=== PATIENT | female | born 1985 | race Caucasian/White ===

== ENCOUNTER → 2016-10-22 | Outpatient (CLI) | payer OTHER ==
--- NOTE | 2016-10-22 11:39 | DI ---
Indication: ITS.REASON: Z34.90 Encounter for supervision of normal , unspecified PROCEDURE: US OB COMPLETE >/= 14WKS: Encounter: Initial Age by provided LMP is 18 weeks and 1 days correlating to an ZHEN of March 24, 2017. Comparison: September 03, 2016 PROCEDURE: US OB COMPLETE >/= 14WKS: Technique: Grayscale and color Doppler transabdominal sonographic imaging was performed. Findings: There is a single living intrauterine gestation in cephalic lie. Placenta is posterior without previa. Quantity of amniotic fluid is normal. The cervix is normal length and closed. Amniotic fluid index is normal at 10.3 cm. Largest vertical pocket in the left upper quadrant is 3.3 cm. Survey of anatomy, including lateral ventricles, cavum septum, posterior fossa, spine, four chamber view of the heart, stomach, kidneys, bladder, and three vessel orthotopic cord insertion are normal. In addition, all long bones in both upper and lower extremities and both hands and feet are present. Coronal view of the nose and lips and sagittal facial profile are unremarkable. heart beats regularly at 143 beats per minute. biometry: Biparietal diameter: 3.92 cm 18 weeks and 0 days (41 percentile). Head circumference: 14.92 cm 18 weeks and 1 days (35 percentile). Abdominal circumference: 12.44 cm 18 weeks and 1 days (44 percentile). Femur Length: 2.66 cm 18 weeks and 1 days (43 percentile). biometrics are internally concordant and consistent with an estimated gestational age of 18 weeks and 1 days. Estimated weight is 223 grams (40 percentile by LMP and 40 percentile by AUA method). Impression: 1. Single living intrauterine gestation with age by provided LMP of 18 weeks and 1 days. This correlates to an ZHEN of March 24, 2017. Estimated dates by ultrasound are identical to the LMP dating. 2. Normal survey of anatomy. .
== END ==
LOC: IMA 10:23
PROVIDERS: ATTEND Family Medicine
DX: Z34.92 Encounter for supervision of normal pregnancy, unspecified, second trimester (principal); Z3A.18 18 weeks gestation of pregnancy; Z36 Encounter for antenatal screening of mother

== ENCOUNTER 2017-02-24 07:14 | Inpatient (IN) ==
[2017-02-24] MEDS ORDERED: MAG-AL + SIM ORAL LIQUID 30ml PO PRN (08:17)
[2017-02-24] MEDS ORDERED: METHYLERGONOVINE 0.2 MG/ML INJECTION IM PRN (08:17)
[2017-02-24] MEDS ORDERED: CALCIUM CARBONATE Chewable 500mg TABLET PO PRN (08:17)
[2017-02-24] MEDS ORDERED: CARBOPROST 250 MCG/ML INJECTION IM PRN (08:17)
[2017-02-24] MEDS ORDERED: ACETAMINOPHEN 500 MG TABLET PO PRN (08:17)
[2017-02-24] MEDS ORDERED: LIDOCAINE 1% (10mg/ml) 2mL INJ PF SDV ID PRN (08:17)
[2017-02-24] MEDS ORDERED: LR 1,000 ML IV SCH (08:30)
[2017-02-24] MEDS ORDERED: AMPICILLIN 2 GM in NS 100 ML IV ONE (08:45)
[2017-02-24] MEDS ORDERED: D5LR 1,000 ML IV SCH (08:52)
[2017-02-24] MEDS ORDERED: OXYTOCIN DRIP 30 UNIT/500 ML ML IV PRN (09:45)
[2017-02-24 10:02] VITALS: BMI 36.3
[2017-02-24 10:14] VITALS: RESP 16; O2SAT 98
--- NOTE | 2017-02-24 11:55 | Anesthesia Preoperative Report ---
Anesthesia Epidural/Spinal Rec - Date and Time Date: 02/24/17 Procedure: Labor Epidural Plan: Epidural - Vital Signs Vital Signs: Temperature 98.3 F 02/24/17 10:09 Pulse Rate 100 02/24/17 10:09 Respiratory Rate 16 02/24/17 10:09 Blood Pressure 119/80 02/24/17 10:09 Pulse Oximetry 98 02/24/17 10:09 Oxygen Delivery Method Room Air /Para: P:2 - Medictaions & Allergies Inpatient Medications: Current Medications Acetaminophen (Tylenol) 500 - 1,000 mg PO Q4H PRN PRN Reason: Pain Al Hydroxide/Mg Hydroxide (Maalox Plus) 30 ml PO Q3H PRN PRN Reason: Indigestion Calcium Carbonate (Tums) 500 - 1,000 mg PO Q2H PRN PRN Reason: Indigestion Carboprost Tromethamine (Hemabate) 250 mcg IM O PRN PRN Reason: .Downtime Lactated Ringer's (Lactated Ringers) 1,000 mls @ 999 mls/hr IV .Q1H1M [facility] Last Admin: 02/24/17 08:26 Dose: 999 mls/hr Ampicillin Sodium 1 gm/ Sodium (Chloride) 100 mls @ 200 mls/hr IV Q4H [facility] Dextrose/Lactated Ringer's (Dextrose 5%-Lactated Ringers) 1,000 mls @ 125 mls/ hr IV .Q8H [facility] Last Admin: 02/24/17 09:05 Dose: 125 mls/hr Lidocaine HCl (Xylocaine-Mpf 1% Vial) 0.2 mg ID O PRN PRN Reason: IV Start Methylergonovine Maleate (Methergine) 0.2 mg IM O PRN Misoprostol (Cytotec) 800 mcg ME ONCE PRN Allergies/Adverse Reactions: Allergies Allergy/AdvReac Type Severity Reaction Status Date / Time NKDA Allergy Unknown Uncoded 02/24/17 09:38 - Home Medications Home Medications: Home Medications Medication Instructions Recorded Confirmed Type Aspirin 1 tab PO DAILY 02/24/17 02/24/17 History FLUoxetine [Prozac] 20 mg PO DAILY 02/24/17 02/24/17 History - Medical History Respiratory: DENIES: Asthma, Bronchitis, Chronic Obstructive Pulmonary Disease (COPD), Dyspnea, Orthopnea, Pulmonary Embolism, Pneumonia, Upper Respiratory Infection, Pulmonary Edema, Sleep Apnea, Tuberculosis, Other Cardiovascular: Reports: Hypertension (borderline PIH) Gastrointestional: Reports: Gastroesophageal Reflux Disease (moderate control with meds PRN) Neuro/Musculoskeletal: Reports: Depression Renal/Endocrine: Reports: Diabetes Mellitus Type 2 (Borderline gestational. no meds.) Other History: Reports: Anesthesia Reactions, Now, Malignant Hyperthermia (pt mother's cousins child.) - Surgical History Anesthesia Reactions: None (Pt has never had GA. no problems with epidurals in past.) Hx Family Anesthesia Reaction: Yes (pt mother's cousin's child has hx of MH) History of Motion Sickness: No - Social History Smoking Status: Never smoker Substance Use Type: does not use Hx Chewing Tobacco Use: No - Pertinent Findings Lab Data: CBC and BMP 02/24/17 08:45 EKG Rhythm: Normal Sinus Rhythm - Physical Exam Respiratory Exam: lungs clear, bilateral breath sounds equal Cardiovascular Exam: regular rate and rhythm, no murmur - Airway Assessment Mallampati Score: I TMD: 3 Fingerbreadths Neck Extension: good Overall Assessment: may be difficult intubation - ASA ASA Score: 2 - Discussion Discussion: Discussed risks/options/alternatives of anesthesia and questions answered. Patient consents. Nursing pain assessment noted. Anesthesia Discussion: spouse Attestation Statement: Prior to the delivery of any anesthetic medication, I examined the patient, developed the plan, obtained the patient's consent and discussed the risk and benefits of the procedure with the patient/guardian.
[2017-02-24] MEDS ORDERED: AMPICILLIN 1 GM in NS 100 ML IV SCH (12:45)
[2017-02-24 15:14] VITALS: BP 137/62; PULSE 64; TEMP 98.4
--- NOTE | 2017-02-24 17:22 | Discharge Instructions ---
Discharge Plan - Med Rec/Dispo Referrals/Follow Up: Nelly Aranda MD [Family Provider] - (Follow up with Rosi on scheduled appt. 02/25/17. ) Jennifer Instructions: HOLA Prescriptions: No Action Aspirin 1 tab PO DAILY FLUoxetine [Prozac] 20 mg PO DAILY
--- NOTE | 2017-02-25 08:45 | Progress Note ---
DATE 02/24/2017 She is a patient of Dr. Aranda. Ms. Estrella is a 31-year-old G5, P2 who sees Dr. Aranda for her regular care. Her due date is 03/24/2017, putting her at 36 weeks estimated gestational age. She was awakened this morning with sharp lower quadrant pain that was intermittent. She then coughed and had a gush of fluid. She presented to [facility]. Here, heart tones were reactive and reassuring. The patient was francia with regularity. AmniSure was obtained. The nurse read it initially as negative but because she could make out where the line was, she showed it to the lab personnel. They recommended that she call it faint positive. The patient was admitted. After a few hours, she was not francia any longer so we started Pitocin. She contracted with this but did not progress any farther. Her cervix remained closed, thick and high through the day. As she had no further leakage, we began to question the original diagnosis of spontaneous rupture of membranes. For this reason I discussed this situation with the patient and with her . I performed a bedside ultrasound and could see two large pockets of amniotic fluid. I performed a sterile speculum exam. There was no pooling. It had been about two hours since she had a cervical check at this point. I performed ferning test with a swab of the vaginal discharge and there was no ferning on that after drying. After discussion with the patient, I elected to send her home as I really don't think she was ruptured and was only 36 weeks. We discussed the situation at length, questions were elicited and answered. I have encouraged her to call if she has any further leaking or feels that labor is progressing. She has an appointment tomorrow with Dr. Aranda and I have encouraged her to keep this but to return to [facility] sooner if there are any further concerns. IDA
== END 2017-02-24 16:24 | disposition home or self-care (01) | DRG 778 ==
LOC: OBOBS 07:14 → MC 07:17 → OBOBS 07:19 → MC 08:21
PROVIDERS: ADMIT Family Medicine; ATTEND Family Medicine

== ENCOUNTER 2017-03-03 01:27 | Inpatient (IN) ==
[2017-03-03] MEDS ORDERED: CARBOPROST 250 MCG/ML INJECTION IM PRN (01:54)
[2017-03-03] MEDS ORDERED: LIDOCAINE 1% (10mg/ml) 2mL INJ PF SDV ID PRN (01:54)
[2017-03-03] MEDS ORDERED: MAG-AL + SIM ORAL LIQUID 30ml PO PRN ×2 (01:54→17:15)
[2017-03-03] MEDS ORDERED: ACETAMINOPHEN 500 MG TABLET PO PRN (01:54)
[2017-03-03] MEDS ORDERED: CALCIUM CARBONATE Chewable 500mg TABLET PO PRN ×2 (01:54→17:15)
[2017-03-03] MEDS ORDERED: METHYLERGONOVINE 0.2 MG/ML INJECTION IM PRN (01:54)
[2017-03-03] MEDS: LR 1,000 ML IV SCH ×3 (02:20→14:55)
[2017-03-03] MEDS ORDERED: AMPICILLIN 2 GM in NS 100 ML IV ONE (02:30)
[2017-03-03 03:12] VITALS: BMI 36.3
[2017-03-03] MEDS: AMPICILLIN 1 GM in NS 100 ML IV SCH ×2 (06:42→12:05)
--- NOTE | 2017-03-03 08:14 | Anesthesia Preoperative Report ---
Anesthesia Epidural/Spinal Rec - Date and Time Date: 03/03/17 Preoperative Diagnosis: induction Procedure: Labor Epidural Plan: Epidural - Vital Signs Vital Signs: Temperature 97.9 F 03/03/17 01:40 Pulse Rate 91 03/03/17 01:40 Respiratory Rate 18 03/03/17 01:40 Blood Pressure 142/88 H 03/03/17 01:40 Oxygen Delivery Method Room Air /Para: P:2 - Medictaions & Allergies Inpatient Medications: Current Medications Acetaminophen (Tylenol) 500 - 1,000 mg PO Q4H PRN PRN Reason: Pain Al Hydroxide/Mg Hydroxide (Maalox Plus) 30 ml PO Q3H PRN PRN Reason: Indigestion Calcium Carbonate (Tums) 500 - 1,000 mg PO Q2H PRN PRN Reason: Indigestion Carboprost Tromethamine (Hemabate) 250 mcg IM O PRN PRN Reason: .Downtime Ampicillin Sodium 1 gm/ Sodium (Chloride) 100 mls @ 200 mls/hr IV Q4H [facility] Last Admin: 03/03/17 06:42 Dose: 200 mls/hr Lactated Ringer's (Lactated Ringers) 1,000 mls @ 125 mls/hr IV .Q8H [facility] Last Admin: 03/03/17 02:20 Dose: 125 mls/hr Lidocaine HCl (Xylocaine-Mpf 1% Vial) 0.2 mg ID O PRN PRN Reason: IV Start Methylergonovine Maleate (Methergine) 0.2 mg IM O PRN Misoprostol (Cytotec) 800 mcg IN ONCE PRN Allergies/Adverse Reactions: Allergies Allergy/AdvReac Type Severity Reaction Status Date / Time NKDA Allergy Unknown Uncoded 03/03/17 03:13 - Home Medications Home Medications: Home Medications Medication Instructions Recorded Confirmed Type Aspirin 1 tab PO DAILY 02/24/17 03/03/17 History FLUoxetine [Prozac] 20 mg PO DAILY 02/24/17 03/03/17 History - Medical History Neuro/Musculoskeletal: Reports: Depression - Surgical History Anesthesia Reactions: None Hx Family Anesthesia Reaction: No History of Motion Sickness: No - Social History Second Hand Exposure: No Substance Use Type: does not use Alcohol Intake Frequency: does not drink Hx Chewing Tobacco Use: No - Pertinent Findings Lab Data: CBC and BMP 03/03/17 02:25 EKG Rhythm: Normal Sinus Rhythm - Physical Exam Respiratory Exam: lungs clear Cardiovascular Exam: regular rate and rhythm, no murmur - Airway Assessment Mallampati Score: I TMD: 3 Fingerbreadths Neck Extension: good Overall Assessment: no airway concerns - ASA ASA Score: 2 - Discussion Discussion: Discussed risks/options/alternatives of anesthesia and questions answered. Patient consents. Nursing pain assessment noted. Anesthesia Discussion: spouse Attestation Statement: Prior to the delivery of any anesthetic medication, I examined the patient, developed the plan, obtained the patient's consent and discussed the risk and benefits of the procedure with the patient/guardian.
[2017-03-03] MEDS ORDERED: D5LR 1,000 ML IV PRN (08:50)
[2017-03-03] MEDS ORDERED: OXYTOCIN DRIP 30 UNIT/500 ML ML IV PRN (08:50)
--- NOTE | 2017-03-03 09:16 | OB/GYN Progress Note ---
- Pain Control Pain control: Tolerating well - Pelvic Exam Dilation (cm): 3 Effacement (%): 60 station: -3 Amniotic membrane status: Ruptured Comments: PROM at 0130 this am. Pt presented at [facility] and progressed to 3 cm and has not changed since then will start IOL - Contractions Monitor mode: External Contraction pattern: Irregular Contraction intensity: Mild - Status status: Category l - Assessment and Plan Assessment: induction ongoing (IOL for PROM. GBS unknown and pt was started on ABX. Discussed indication for IOL and R/B/A/ including failure, C/S carmita PPH. )
--- NOTE | 2017-03-03 13:08 | OB/GYN Progress Note ---
- Pain Control Pain control: Epidural - Pelvic Exam Dilation (cm): 3 Effacement (%): 60 station: -3 Amniotic membrane status: Ruptured Comments: For bag palpated, Ruptured Moderate amount clear fluid. - Contractions Monitor mode: External Contraction pattern: Regular (AROM of forebag tolerated by pt and fetus) Contraction intensity: Moderate - Status status: Category l - Assessment and Plan Assessment: induction ongoing
[2017-03-03] MEDS ORDERED: NALOXONE 0.4 MG/ML INJECTION IVP PRN (15:20)
[2017-03-03] MEDS ORDERED: DiphenhydrAMINE 50 MG/ML INJECTION IVP PRN (15:20)
[2017-03-03] MEDS ORDERED: ONDANSETRON 4 MG/2 ML INJECTION IVP PRN (15:20)
[2017-03-03] MEDS ORDERED: ROPIVACAINE 1% 10MG/ML INJ 200 MG, SUFentanil 50 MCG in NS 100 ML EPI PRN (15:20)
--- NOTE | 2017-03-03 17:13 | OB/GYN Procedure Note ---
Delivery date: 03/03/17 Events: Labor Induction Induction method: per pitocin protocol Delivery monitor: external FHT, internal uterine Route of delivery: Episiotomy description: None Laceration description: Periurethral - 1st Degree Delivery repair: vicryl Estimated blood loss (mL): 400 Anesthesia type: Epidural - Baby 1 Infant gender: Female presentation: Vertex Placenta delivery description: Spontaneous cord vessel description: 3 Vessels at 1 minute: 8 at 5 minutes: 9 Narrative: See dictation delivery note
[2017-03-03] MEDS ORDERED: OXYTOCIN DRIP 30 UNIT/500 ML ML IV SCH ×2 (17:15)
[2017-03-03] MEDS ORDERED: DiphenhydrAMINE 25 MG CAPSULE PO PRN (17:15)
[2017-03-03] MEDS ORDERED: HYDROCORTISONE 2.5% CREAM 30gm RECTALLY PRN (17:15)
[2017-03-03] MEDS ORDERED: SALINE FLUSH 10ml SYRINGE IVF PRN (17:15)
[2017-03-03] MEDS ORDERED: Oxycodone/Acetaminophen 5/325 1 TAB PO PRN (17:15)
[2017-03-03] MEDS: IBUPROFEN 800 MG TABLET PO PRN (17:31)
[2017-03-03] MEDS: ACETAMINOPHEN 500 MG TABLET PO PRN (23:22)
[2017-03-04 06:07] VITALS: O2SAT 98
--- NOTE | 2017-03-04 06:49 | Labor and Delivery Note ---
DATE OF DELIVERY 03/03/2017 DELIVERY NOTE Normal spontaneous vaginal delivery of a live female infant, name Brooke Leal, over intact perineum with epidural anesthesia. There was a nuchal cord x 1. Spontaneous delivery of the placenta shortly after infant with a three-vessel cord. There was a first-degree perineal laceration that was approximated with two [id number] sutures for hemostasis using 2-0 Vicryl. Estimated blood loss was 400 cc. Apgars of the was 8/9 and weight was 2824 g. Patient delivered at 37 weeks secondary to premature rupture of membranes. She was induced using Pitocin. MTDD
[2017-03-04] MEDS: IBUPROFEN 800 MG TABLET PO PRN ×2 (07:43→16:07)
--- NOTE | 2017-03-04 08:07 | Anesthesia Postoperative Note ---
- Date and Time Date: 03/04/17 Time: 08:00 - Status Patient Participated in Evaluation: Patient Participated in Person Vital Signs: Temperature 97.7 F 03/04/17 04:40 Pulse Rate 85 03/04/17 04:40 Respiratory Rate 14 03/04/17 04:40 Blood Pressure 118/68 03/04/17 04:40 Pulse Oximetry 98 03/04/17 04:40 Oxygen Delivery Method Room Air Respiratory Function: Airway Patent, Regular Respirations Cardiovascular Function: Regular Pulse Mental Status: Alert and Oriented Pain Intensity: 0 Hydration: Taking PO Fluids Complications During Recover: None Apparent Post Anesthesia Care Notes: ambulating without problem. - Follow-Up Instructions Instructions: Per Surgeon
[2017-03-04] MEDS ORDERED: DOCUSATE CALCIUM 240 MG CAPSULE PO SCH (09:00)
[2017-03-04 13:52] VITALS: BP 122/81; PULSE 80; RESP 16; TEMP 97.8
--- NOTE | 2017-03-04 14:01 | Discharge Summary ---
Discharge Information Date of admission: 03/03/17 01:54 Anticipated date of discharge: 03/04/17 Attending Physician: Nelly Aranda MD Primary care physician: Nelly Aranda MD Consults: 03/03/17 17:15 Nurse Consult [CONS] Routine Comment: - Discharge Diagnosis Discharge Diagnosis: TIUP, PROM - Procedures Procedures: External monitor, GBS prophylaxis, IUPC, pitocin augmentation, Spontaneous vaginal delivery, epidural anesthesia - Laboratory Labs: 03/03/17 02:25 History of Present Illness HPI: 03/04/17 13:59 Pt presented to the hospital w/ PROM w/o SOOL. Pitocin augmentation was started & she was able to deliver by a 2824gm female infant w/ APGARs 8/9 by the name of Brooke Estrella. See delivery dictation for details. Remainder of hospital course was unremarkable. Today is PPD #1 & pt is requesting d/c to home. Will plan to let her go home this evening if she & baby continue to do well. Hospital Course This is a general summary of the patient's hospital course. For more details refer to the complete medical record. Hospital course: See hpi. Pt is doing well today & has no complaints. Bottle feeding. Moderate lochia. Bernard PO/amb/void. Time spent with patient: less than 15 minutes Discharge Plan - Med Rec/Dispo Referrals/Follow Up: Nelly Aranda MD [Family Provider] - Nicol[facility] Instructions: Depression (GEN) Prescriptions: New Acetaminophen [Tylenol] 500 - 1,000 mg PO Q4HR PRN tablet PRN Reason: Pain Docusate Calcium [Surfak] 240 mg PO DAILY capsule Ibuprofen [Motrin] 800 mg PO Q8H PRN tablet PRN Reason: Pain Continue Aspirin 1 tab PO DAILY FLUoxetine [Prozac] 20 mg PO DAILY Discharge Instructions/Outpatient Orders: Final Provider Discharge Instructions Location: Determined By Patient - Disposition 01 Discharged Home, Self-Care
--- NOTE | 2017-03-04 14:25 | Discharge Instructions ---
Discharge Plan - Med Rec/Dispo Referrals/Follow Up: Nelly Aranda MD [Family Provider] - Nicol[facility] Instructions: Depression (GEN) Prescriptions: New Acetaminophen [Tylenol] 500 - 1,000 mg PO Q4HR PRN tablet PRN Reason: Pain Docusate Calcium [Surfak] 240 mg PO DAILY capsule Ibuprofen [Motrin] 800 mg PO Q8H PRN tablet PRN Reason: Pain Continue Aspirin 1 tab PO DAILY FLUoxetine [Prozac] 20 mg PO DAILY Discharge Instructions/Outpatient Orders: Final Provider Discharge Instructions Location: Determined By Patient Final Provider Discharge Instructions Location: Determined By Patient - Disposition 01 Discharged Home, Self-Care
[2017-03-04] MEDS: ACETAMINOPHEN 500 MG TABLET PO PRN (14:26)
== END 2017-03-04 18:38 | disposition home or self-care (01) | DRG 775 ==
LOC: OBOBS 01:27 → MC 01:28
PROVIDERS: ADMIT Obstetrics & Gynecology; ATTEND Family Medicine